=== PATIENT | female | born 1985 | race Caucasian/White ===

== ENCOUNTER 2016-05-20 12:12 | Inpatient (IN) | payer OTHER ==
[~2016-05-20] VITALS: Ht 165.1 cm; Wt 72.8 kg
--- NOTE | ~2016-05-20 | CLPRLASSUM ---
"PATIENT: JOHNATHON BURNS | | [facility] UNIT #: [id number] | [address] AGE/SEX: 30 F : 89 | [address] | [place] [address] ADMIT/REG DATE: 05/20/16 | ROOM: [facility] LOC: ADTC | ADTC | Client Problem List/Assessment Summary Date: 05/09/16 Problems identified by the client: addiction, low self-esteem, legal problems and family problems Problems identified by significant others: addiction, parenting and suicidal thoughts Client's Strengths: caring, open-minded and insightful Problem List: Code: O Client continues to use alcohol &/or drugs despite ongoing negative consequences. Code: T Client has learned to deny or stuff feelings; needs to learn to identify and process feelings with safe people to acquire the necessary skills to maintain manager intermediate sobriety. Code: T Client needs to identify relapse warning signs and develop a plan to deal with them as they arise. Code: O Client is experiencing family &/or significant other discord and distancing as a result of past alcohol &/or drug usage. Code Sheriff: T: to be addressed during course of treatment O: problem noted, expected to resolve itself with abstinence--specific tx plan not required R: problem noted, will be referred upon discharge PRIMARY COUNSELOR: Hue Alvarez"
--- NOTE | ~2016-05-20 | INDIVTXPL2 ---
"PATIENT: JOHNATHON BURNS | | [facility] UNIT #: [id number] | [address] AGE/SEX: 30 F : 89 | [address] | [place] [address] ADMIT/REG DATE: 05/20/16 | ROOM: [facility] LOC: ADTC | ADTC | Individualized Treatment Plan DATE: 05/27/16 Problem Statement/Issue Identified: Client continued to use alcohol &/or drugs despite ongoing negative consequences. Goal: Client will identify self-defeating behaviors in order to make better choices in recovery. Objectives/Activities to achieve goal: 1. Complete HOW TO GET STARTED IN TREATMENT and process with counselor and in group as assgined. Due Date: 05/28/16 Complete: Incomplete: 2. Complete step 1 assignment to identify powerlessness and unmanagability and process with counselor. Share in group 15 examples of how betrayed values (pg 10) and 10 specific examples of effects on others (pg. 11) in group. Due Date: 06/05/16 Complete: Incomplete: 3. Read the first 164 pages of ALCOHOLICS ANONYMOUS and process with counselor. 0 Due Date: 06/17/16 Complete: Incomplete: Client Signature Date Counselor Signaure: Date Outcome/Measurement of Progress Towards Goal: Counselor Signature: Date "
--- NOTE | ~2016-05-20 | INDIVTXPL2 ---
"PATIENT: JOHNATHON BURNS | | [facility] UNIT #: [id number] | [address] AGE/SEX: 30 F : 89 | [address] | [place] [address] ADMIT/REG DATE: 05/20/16 | ROOM: [facility] LOC: ADTC | ADTC | Individualized Treatment Plan DATE: 06/10/16 Problem Statement/Issue Identified: Client is at risk for relapse. Goal: Client will identify relapse triggers and form personal relapse prevention plan. Objectives/Activities to achieve goal: 1. Complete RELAPSE PREVENTION workbook and process with counselor and in group as assigned. Due Date: 06/17/16 Complete: Incomplete: 2. Bring up the topic of relapse at a 12 step meeting and list 10-15 relapse triggers and/or prevention plan. Due Date: 06/17/16 Complete: Incomplete: Client Signature Date Counselor Signaure: Date Outcome/Measurement of Progress Towards Goal: Counselor Signature: Date "
--- NOTE | ~2016-05-20 | TXPLANREV ---
"PATIENT: JOHNATHON BURNS | | [facility] UNIT #: [id number] | [address] AGE/SEX: 30 F : 89 | [address] | [place] [address] ADMIT/REG DATE: 05/20/16 | ROOM: [facility] LOC: ADTC | ADTC | Treatment Plan/Staffing Review Date: 06/10/16 Treatment plan was reviewed and determined appropriate as written: yes, client is working on feelings letters Treatment plan was reviewed and the following changes/addition/deletions are necessary: will add relapse prevention Discharge plans were reviewed and determined appropriate as previously documented: Client has been referred to 12 step meetings and sponsorship. Client plans to return to [place] and will seek aftercare there. Client will also put name on the waiting list for [facility]'s. Discharge plans were reviewed and determined to be as follows: Other pertinent issues discussed during this staffing review include: Staff Present: Vy Olmos, Flora Lancaster, Sukhdeep Go, Paloma Quinn PRIMARY COUNSELOR: Hue Alvarez Client Signature Counselor Signature Date Time "
--- NOTE | ~2016-05-20 | INDIVTXPL2 ---
"PATIENT: JOHNATHON BURNS | | [facility] UNIT #: [id number] | [address] AGE/SEX: 30 F : 89 | [address] | [place] [address] ADMIT/REG DATE: 05/20/16 | ROOM: [facility] LOC: ADTC | ADTC | Individualized Treatment Plan DATE: 05/27/16 Problem Statement/Issue Identified: Client has learned to deny or stuff feelings which may lead to relapse. Goal: Client needs to learn to identify and process feelings with safe people to acquire the necessary skills to maintain superintendent container terminal sobriety. Objectives/Activities to achieve goal: 1. Complete significant event forms on a daily basis and process with counselor as needed. Due Date: 06/18/16 Complete: Incomplete: 2. Write feelings letters as assigned and process with counselor and in family group as assigned. Due Date: 06/16/16 Complete: Incomplete: 3. Complete WOMENS FEELINGS ISSUES JOURNAL and process with counselor and in womens group. Due Date: 06/12/16 Complete: Incomplete: Client Signature Date Counselor Signaure: Date Outcome/Measurement of Progress Towards Goal: Counselor Signature: Date "
--- NOTE | ~2016-05-20 | TXPLANREV ---
"PATIENT: JOHNATHON BURNS | | [facility] UNIT #: [id number] | [address] AGE/SEX: 30 F : 89 | [address] | [place] [address] ADMIT/REG DATE: 05/20/16 | ROOM: [facility] LOC: ADTC | ADTC | Treatment Plan/Staffing Review Date: 06/03/16 Treatment plan was reviewed and determined appropriate as written: yes, client is working on step 1 and feelings letters Treatment plan was reviewed and the following changes/addition/deletions are necessary: will add relapse prevention in the next week Discharge plans were reviewed and determined appropriate as previously documented: Discharge plans were reviewed and determined to be as follows: Client will be referred to 12 step meetings and sponsorship. Client would also benefit from sober living and continued counseling with an Reza Other pertinent issues discussed during this staffing review include: [facility] legal billing analyst in making arrangements for client to visit with her daughter on Thursday. Staff Present: Sukhdeep Lock, Flora Lancaster, Paloma Quinn, Deborah Gramajo PRIMARY COUNSELOR: BEVERLY Dickinson, [facility] Client Signature Counselor Signature Date Time "
--- NOTE | ~2016-05-20 | RESCARESUM ---
"PATIENT: JOHNATHON BUNRS | | [facility] UNIT #: [id number] | [address] AGE/SEX: 30 F : 89 | [address] | [place] [address] ADMIT/REG DATE: 05/20/16 | ROOM: [facility] LOC: ADTC | ADT | Summary of Residential Care Primary Counselor: Hue PAUL,[facility] Date of Admission: 05/20/16 Date of Discharge: 06/17/16 Referral Source: self/[facility] Primary Care Provider Prior to Admission: no doctor listed Admitting Diagnosis: 304.40 stimulant use disorder severe, 303.90 alcohol use disorder severe, 304.30 cannabis use disorder severe, 305.10 tobacco use disorder. Per history: major depressive disorder-recurrent moderate, postraumatic stress disorder Discharge Diagnosis: same Goals Achieved: Client verbalized increased awareness into the severity of her addiction. She practiced identifying and expressing feelings appropriately with safe people. Client identified relapse triggers and formed personal relapse prevention plan. Continued Obstacles to Sobriety/Relapse Issues: anger-not dealing with feelings appropriately, boredom, self-pity, isolation and/or not asking for help. Family Issues Addressed: Client participated in family work alone. She processed feelings letters in session and group as assigned. Client had phone session with her sister and processed feelings letter at that time. Client would likely benefit from additional family sessions when she returns to [place]. Y Individual Therapy Y Group Therapy Y Educational Series on Substance Abuse N Parents/Significant Others Attended Family Program N Acute Medical Problems During the Course of Treatment N Transferred to Hospital During the Course of Treatment Y Accepting of Substance Abuse Problem N Non-accepting of Substance Abuse Problem N Required Psychological or Psychiatric Consultation During the Course of Treatment Completed AA Step # 1 During This Level of Care Significant Incidences During Treatment: Client served in client administrator position to assist her in developing leadership qualities and working on assertiveness. Reason For Discharge: X Completed Residential [place] Goals and Ready For Next Level of Care Continuing Care Plan/Recommendations: Intensive Partial Care X Sponsor Partial Care PATIENT: JOHNATHON BURNS | | [facility] UNIT #: [id number] | [address] AGE/SEX: 30 F : 89 | [address] | [place] [address] ADMIT/REG DATE: 05/20/16 | ROOM: [facility] LOC: ADTC | ADT | Summary of Residential Care X AA Meetings/NA Meetings Outpatient Co-dependency Services X The[facility] [address] [facility] [address] [facility] Marriage Counseling Other Specific Continuing Care Plan: Client is recommended to reside in sober living with counseling. Client is returning to [place] to be near family and her children. She has been referred to [facility] and will seek interium outpatient treatment until admission there. Client has been referred to 12 step meetings and sponsorship. PRIMARY COUNSELOR: Hue Alvarez, BEVERLY, LADC"
--- NOTE | 2016-05-20 22:51 | NUR ---
Tech note : Client participated in rec, playing charMeterHero. Client participated in guided meditation and attended an onsite AA meeting. she was checked into her room and gave her first intro to the group. SE: coming back to treatment.
--- NOTE | 2016-05-21 00:18 | NUR ---
EDUCATION 1HR: Clt watched video by Hiram Freeman entitled my attitude.
--- NOTE | 2016-05-21 04:32 | NUR ---
Bed note : Client was asleep and in no distress at the last two bed checks. She was awake the first bed check, trying to gain access to the bathroom. Her neighbors had forgotten to unlock the door.
--- NOTE | 2016-05-21 11:39 | NUR ---
Clients istened as their peers shared their getting started packet and feeling letters. CLient sat quietly while peers shared. Student: Andre Taylor
--- NOTE | 2016-05-21 12:56 | NUR ---
INITIAL SESSION 1 HR: Clt was oriented to tx process, tx plans, schedules and what to expect from counselor and tx. She had been here previously and left due to needing to take care of mental health. She will be seen by Hue Alvarez, who is currently out ill, so was seen by this counselor and student Andre Taylor. She shared she has 2 children, living with her sister, is on meds to deal with PTSD, but heard she will work on that in session. She is to work on initial paperwork.
--- NOTE | 2016-05-21 13:46 | NUR ---
Education note: client attended education speaker from the [facility].
--- NOTE | 2016-05-21 13:54 | NUR ---
Tech notes: Client is working on Getting started
--- NOTE | 2016-05-21 17:36 | NUR ---
SPIRITUAL EDUCATION 1 Hr. Today's topic besides welcoming and orienting newcomers was on the miracle of the human body taken from [employer].
--- NOTE | 2016-05-21 18:25 | NUR ---
Education: 1 Hour. Client attended Step 2 @ 3 lecture presented by staff.
--- NOTE | 2016-05-21 22:57 | NUR ---
tech note: client played [employer] for recreation & attended onsite NA meeting. Seen walking the halls with a male peer. Redirected by [employer] for inappropriate language. SE: Spirituality.
--- NOTE | 2016-05-22 04:54 | NUR ---
Bed Note: Clt lay motionless in bed with eyes closed showing no distress at all bed checks.
--- NOTE | 2016-05-22 10:22 | NUR ---
Tech Note: Client Participated in Spiritual Enrichment and stated that he is working on Step One.
--- NOTE | 2016-05-22 11:30 | NUR ---
AM/WOMEN'S GRP 1.5 HRS, Ratio 1:6/ Clt participated in grp discussion on various topics. She didn't engage much, but when she did it was good feedback.
--- NOTE | 2016-05-22 13:38 | NUR ---
Education Note: Client watched the video,"Inhalant Abuse, Signs and Symptoms."
--- NOTE | 2016-05-22 16:25 | NUR ---
Step group 1 hr/ Focus was on step 10 taking personal inventory. Gave clients some questions to answer on paper and then discussed out loud to educate on step 10. This client participated.
--- NOTE | 2016-05-22 18:30 | NUR ---
Education: 1 Hour. Client watched "Picking up the Pieces" video.
--- NOTE | 2016-05-22 18:30 | NUR ---
Education: 1 Hour. Client watched "Picking up the Pieces" video.
--- NOTE | 2016-05-22 22:56 | NUR ---
Tech note: Clt played a game for recreation and attended onsite mtg. SE was 30 day chip at [facility]
--- NOTE | 2016-05-23 04:11 | NUR ---
tech note: client was motionless in no distress at all bed checks.
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
--- NOTE | 2016-05-23 11:30 | NUR ---
Group 1.5hr/ 11:1 Clients all heard peer share GS packet about her life and group also discussed how [employer] has helped them. Client gave some feedback but mostly quiet and attentive.
--- NOTE | 2016-05-23 13:00 | NUR ---
PEER REVIEWS 1 HR: Clt participated in peer review process and was able to give open and honest feedback to those receiving a review.
--- NOTE | 2016-05-23 16:13 | NUR ---
Tech Note: Client watched a film entitled "Nightmare on [address]" and is working on Step 1.
--- NOTE | 2016-05-23 22:57 | NUR ---
TECH NOTE: Client participated in reading guidelines, watched tv/movies, and attended off site AA meeting. SE: finished step 1
--- NOTE | 2016-05-24 04:21 | NUR ---
BED NOTE: Client was in bed, motionless with eyes closed all bed checks
--- NOTE | 2016-05-24 16:23 | NUR ---
Tech Note: Client went to an off-site AA Meeting. Client stated that she is working on reading the Big Book.
--- NOTE | 2016-05-24 21:07 | NUR ---
Tech note: Client watched basketball or worked on [employer] projects for rec, attended offsite AA meeting. Watched Tv and movies SE:janiya
--- NOTE | 2016-05-25 04:26 | NUR ---
BED NOTE: Client was in bed, motionless with eyes closed all three bed checks.
--- NOTE | 2016-05-25 16:48 | NUR ---
Tech Note: Client participated in Big Book Study, chapter two. Client stated that she is working on reading the Big Book.
--- NOTE | 2016-05-25 23:09 | NUR ---
Tech Note : Client attended AA panel/speaker. Client went to an onsite [employer] meeting. SE: Talking at meeting
--- NOTE | 2016-05-26 05:02 | NUR ---
Bed note : Client was asleep and in no distress at all bed checks.
--- NOTE | 2016-05-26 09:56 | NUR ---
Tech notes: Client is working on BB
--- NOTE | 2016-05-26 11:30 | NUR ---
Experiential Group 1.5 hr/ Clients all participated in family sculpturing by role-playing, feedback or relating. All discussed coming from healthy and unhealthy home environments.
--- NOTE | 2016-05-26 13:27 | NUR ---
Education note: Client watched a video "It can't happen to me".
--- NOTE | 2016-05-26 16:00 | NUR ---
RECOVERY 101 1 HR/ Clients all shared and asked questions in discussions on recovery, what to work on in treatment, how to get a sponsor, opening up while here to get everything out, feelings letters, family program and EMDR therapy.
--- NOTE | 2016-05-26 18:09 | NUR ---
Education Note: 1 hour lecture on feelings given by counselor
--- NOTE | 2016-05-26 22:36 | NUR ---
TECH NOTE: Client played [employer]xim[employer] in REC and attended on site NA meeting. SE: celebrating her 30 days
--- NOTE | 2016-05-27 04:25 | NUR ---
Bed note: Client was in bed with eyes closed and no distress at all bed checks.
--- NOTE | 2016-05-27 11:30 | NUR ---
GROUP 1.5 HRS. 1:9 Group discussion included FEELINGS, FAMILY RELATIONSHIPS and effects on family. Client offered supportive feedback to female peer who shared about separation from . Peer encouraged this client to share and open up as she tends to isolate on the unit. Client agreed that she has trouble with groups but female peer advised she is doing better since she got here.
--- NOTE | 2016-05-27 14:49 | NUR ---
Education 0.5 Hour: Client attended a presentation by an outwside speaker who spoke on, "Cross Addiction."
--- NOTE | 2016-05-27 14:58 | NUR ---
Tech Note: Client particiipated in light stretching for morning exercise period and went for an outdoor walk in the afternoon. Client stated that she is working on reading the Big Book.
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
--- NOTE | 2016-05-27 17:57 | NUR ---
Relapse Prevention: 1.0 hours, 05/13, Client attended and actively participated in relapse prevention education which focused on identifying internal relapse triggers and cues.
--- NOTE | 2016-05-27 23:05 | NUR ---
Tech note: Client participated in beaded project for rec and attended an onsite AA meeting. SE; Meeting with counselor
--- NOTE | 2016-05-28 04:00 | NUR ---
Bed Note; Client was asleep and in no distress at all bed checks.
--- NOTE | 2016-05-28 09:55 | NUR ---
Tech notes: Client is working on Fl's and mtg with chavez.
--- NOTE | 2016-05-28 11:30 | NUR ---
GROUP 1.5 HRS. 1:11 Group discussion included family issues and HOW TO GET STARTED IN TREATMENT assignments. Peer shared his first and client was noted to be anxious and stated she didn't want to share in this big of a group but she did willingly share as assigned. It was noted that client stopped shaking her leg immediately when she started to share. She agreed that anticipation was the worst part.
--- NOTE | 2016-05-28 12:44 | NUR ---
Education note: Client attended education by [facility].
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
--- NOTE | 2016-05-28 17:47 | NUR ---
SPIRITUaL EDUCATION 1 HR. Todays topic after orienting newcomers was GRATITUDE with information taken from ATTITUDES OF GRATITUDE.
--- NOTE | 2016-05-28 17:47 | NUR ---
Client's commonwealth attorney, Carrillo Bustamante, returned call to client and requested she call back tomorrow.
--- NOTE | 2016-05-28 19:19 | NUR ---
Education: 1 Hour. Client attended "Unresloved Anger" lecture and discussion presented by staff.
--- NOTE | 2016-05-28 23:07 | NUR ---
Tech note; Client played catch phrase for rec and attended an onsite NA meeting. SE; rec
--- NOTE | 2016-05-29 04:32 | NUR ---
Bed Note: Client was asleep and in no distress at all bed checks.
--- NOTE | 2016-05-29 10:43 | NUR ---
Tech Note: Client participated in light stretching for morning exercise and stated that she is working on writing Feelings Letters.
--- NOTE | 2016-05-29 11:50 | NUR ---
Group 1.5 Hr Ratio 1:11/Topics today were a feelings letter and a GS packet. Client was quiet all of group and didnot share.
--- NOTE | 2016-05-29 17:01 | NUR ---
Step ed/1 hr/ Handed out a worksheet on step 11 on prayer and meditation and had them complete and then we discussed. This client participated.
--- NOTE | 2016-05-29 17:48 | NUR ---
Education 1 Hour: Client heard a presentation from a member of the recovery community who shared his experience, strength and hope.
--- NOTE | 2016-05-29 23:39 | NUR ---
TECH NOTE: Client played Catch Phrase for REC, participated in Guided Meditation and attended on site AA meeting. SE: REC
--- NOTE | 2016-05-30 02:19 | NUR ---
Education 1HR: Clt watched educational video entitled "Don't Meth With Me".
--- NOTE | 2016-05-30 04:52 | NUR ---
BED NOTE: Client was in bed, eyes closed and motionless all three bed checks
--- NOTE | 2016-05-30 11:30 | NUR ---
Group 1.5hr/ 11:1 Clients heard peer share GS packet, gave feedback and got into deep discussions about recovery.
--- NOTE | 2016-05-30 13:47 | NUR ---
PEER REVIEWS 1 HR: CLt participated in peer reviews and was able to give open and honest feedback to those receiving a review.
--- NOTE | 2016-05-30 15:39 | NUR ---
Tech Note: Client watched a video entitled "The Enablers" and is working on Feelings Letters and a "women's journal".
--- NOTE | 2016-05-30 20:45 | NUR ---
TECH NOTE: Client participated in reading guidelines, watched TV/movies, used phone and attended off site AA meeting SE:
--- NOTE | 2016-05-31 04:46 | NUR ---
BED NOTE: Client was in bed, motionless with eyes closed all bed checks.
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
--- NOTE | 2016-05-31 15:37 | NUR ---
Tech notes: Client attended NA panel this morning and working on Fl's.
--- NOTE | 2016-05-31 18:38 | NUR ---
tech note: client attended offsite recovery event.
--- NOTE | 2016-06-01 04:38 | NUR ---
Bed Note: Clt lay motionless in bed with eyes closed showing no distress at all bed checks.
--- NOTE | 2016-06-01 15:10 | NUR ---
Tech Note: Client participated in big book study and is working on FL's.
--- NOTE | 2016-06-01 23:19 | NUR ---
Tech note: Client asked to go to [facility]. was upset after phone calls. Attended CONTINUOUS IMPROVEMENT SPECIALIST meeting. Watched TV SE: [employer]
--- NOTE | 2016-06-02 04:34 | NUR ---
BED NOTE: Client was in bed, motionless, with eyes closed all bed checks.
--- NOTE | 2016-06-02 10:20 | NUR ---
Tech notes: Client is working on Fl's.
--- NOTE | 2016-06-02 11:30 | NUR ---
Group 1.5hr/ 2:22 Clients all participated in THE WALL reading, drawing and sharing about their goel with the group showing character defects and relapse triggers, plus what has helped them go gain hope and support in taking down their wall.
--- NOTE | 2016-06-02 12:52 | NUR ---
Education note: Client attended education by [facility], HIV testing.
--- NOTE | 2016-06-02 15:26 | NUR ---
FAMILY CONTACT Client's sister called and advised she is not going to be able to come to for family. Scheduled phone session for 06/05 AT 8:30 AM. Sister provided information regarding client's kids to be relayed to client.
--- NOTE | 2016-06-02 16:56 | NUR ---
Recovery 101 1 hr/ Clients involved in identifying and discussion about fundamentals of recovery. Did discuss types of meetings, how to get and use sponsors, working steps, reading JORGE literature, using slogans/serenity prayer/tools, not to start new relationship first year, encourage family to go to [facility] and open AA/NA, finding a HP/home group, HOW/sayings/slogans, etc.
--- NOTE | 2016-06-02 18:20 | NUR ---
Education: 1 Hour. Client attended "Forgiveness" lecture given by staff.
--- NOTE | 2016-06-02 22:53 | NUR ---
tech note: client played Catch Phrase for recreation & attended onsite NA mtg. Thanked peers for all their support. SE: NA.
--- NOTE | 2016-06-03 05:14 | NUR ---
Tech Note: Clt lay motionless in bed with eyes closed showing no distress at all bed checks.
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
--- NOTE | 2016-06-03 13:51 | NUR ---
Education 1 Hour: Client attended a presentation on "Tobacco Educaton."
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
--- NOTE | 2016-06-03 15:20 | NUR ---
Tech Note: Client participated in light stretching for morning exercise and walked in the halls in the afternoon. Client stated that she is working on wriiting HOTELbeats Letters.
--- NOTE | 2016-06-03 15:57 | NUR ---
Relapse Prevention, 1.0, Client attended and actively participated in relapse prevention education which focused on the relapse quiz "What Do You Know About Relaps?"
--- NOTE | 2016-06-03 22:46 | NUR ---
Education note: 1 hour, lecture given by counselor on what painting are you willing to pay.
--- NOTE | 2016-06-03 23:10 | NUR ---
Tech note: Instead of rec clients went to an alumni meeting and attended an onsite AA meeting. SE; Found out she gets to visit her daughter
--- NOTE | 2016-06-04 04:21 | NUR ---
Bed Note: Client was in bed with eyes closed and in no distress at all bed checks.
--- NOTE | 2016-06-04 10:24 | NUR ---
Tech Notes: Client is working on Fl's.
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
--- NOTE | 2016-06-04 13:33 | NUR ---
SPIRITUAL EDUCATION 1 HR. Topics today were on getting out of self centered behavior and recovery slogans. Clients made BB bookmarks w slogans and also anonymously wrote welcoming letters for newcomers.
--- NOTE | 2016-06-04 17:54 | NUR ---
ducation Note: Client attended education speaker Alfonzo
--- NOTE | 2016-06-04 20:42 | NUR ---
Education: 1 hour lecture on boundaries given by counselor
--- NOTE | 2016-06-04 22:17 | NUR ---
Tech note : Client participated in rec by playing catch phrase and attended an onsite NA meeting. SE; Group
--- NOTE | 2016-06-05 03:52 | NUR ---
Bed note : Client was motionless and in no distress at all bed checks.
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
--- NOTE | 2016-06-05 10:23 | NUR ---
Tech Note: Client participated in light stretching for morning exercise. Client stated that she is working on, "Relapse Prevention" and writing Feelings Letters.
--- NOTE | 2016-06-05 11:30 | NUR ---
AM GRP 1.5 HRS, Ratio 1:9/ Clt cried as her peers were sharing about suicidal attempts, parents not being in their lives, and stated she can relate to all of them. She has been on her own for many years and has been suicidal. We discussed how recovery can change all that thinking.
--- NOTE | 2016-06-05 13:57 | NUR ---
Education 1 Hour: Client watched the vidoe, "Predator" by Hiram Schumacher.
--- NOTE | 2016-06-05 16:41 | NUR ---
FAMILY EDUCATION 3 HRS. Client attended alone and took part in the discussion on the disease concept. Client shared chemical history and the consequences.
--- NOTE | 2016-06-05 21:00 | NUR ---
Education: 1 Hour. Client attended "Spiritual Awakening" video.
--- NOTE | 2016-06-05 23:05 | NUR ---
Tech Note: Client played a game for recreation and attended onsite A.A. Meeting. SE: Phone
--- NOTE | 2016-06-06 04:12 | NUR ---
Tech Note: Client was motionless with no distress at all bed checks.
--- NOTE | 2016-06-06 14:13 | NUR ---
PEER REVIEWS 1 HR: Jeremy participated in peer review process and received her own. She heard she is ashamed, needs to forgive herself, insecure, has quilt, hides in the corner, holding on to the past, can go from happy to sad in a minute, thinks she lacks value, has regret, remorse, a wall, sadness, hurt, shame and depression, she worries about what others think of her and is afraid of the future. Jeremy stated she felt all of the feelings when hearing these things.
--- NOTE | 2016-06-06 15:50 | NUR ---
Tech Note: Client joined in outdoor group walk, watched "Marijuana" video (by Hiram Schumacher) and is working on Feelings Letters and Relapse Prevention.
--- NOTE | 2016-06-06 16:37 | NUR ---
Morning Group, 05/05, 1.5 hours, Client attended and actively participated in group. Client shared her Step 1 and how she is having a hard time forgiving herself for past mistakes.
--- NOTE | 2016-06-06 23:21 | NUR ---
TECH NOTE: Client participated in reading guidelines, watched tv/movies and attended optional AA meeting. SE: peer review
--- NOTE | 2016-06-07 04:22 | NUR ---
Bed Note: Clt lay motionless in bed with eyes closed showing no distress at all bed checks.
--- NOTE | 2016-06-07 16:08 | NUR ---
Tech Note: Client attended an off-site AA meeting. Client stated that she is working on, "Relapse Prevention" and writing Feelings Letters.
--- NOTE | 2016-06-07 20:06 | NUR ---
TECH NOTE: Client played Charades in REC, attended off site AA meeting and watched tv/movies SE: janiya
--- NOTE | 2016-06-08 04:42 | NUR ---
Bed Note: Clt lay motionless in bed with eyes closed showing no distress at all bed checks.
--- NOTE | 2016-06-08 14:45 | NUR ---
Tech Note: Client stated that she is working on writing Feelings Letters. Client attended catholic and went for an optional outdoor walk.
--- NOTE | 2016-06-08 23:17 | NUR ---
Tech Note: Client attended A.A.Panel. Client used phone and watched a movie. Client also chaired the [facility] meeting salima. SE: Visit with family
--- NOTE | 2016-06-09 04:31 | NUR ---
Bed Note: Clt lay motionless in bed with eyes closed showing no distress at all bed checks.
--- NOTE | 2016-06-09 09:48 | NUR ---
Tech Notes: Client is working on Relapse Prevention.
--- NOTE | 2016-06-09 11:30 | NUR ---
Group 1.5 hr/ 8:1 Clients heard peers share GS packet and letters, this client was involved in relating and feedback.
--- NOTE | 2016-06-09 13:48 | NUR ---
emerald note: Client attended speaker Chintan Go
--- NOTE | 2016-06-09 21:00 | NUR ---
FAMILY EDUCATION 3 HRS., GROUP 2 HRS. 2:6 Client attended alone and took part in the discussion on the family roles, codependency and detachment. Client tearful as peers and families processed feelings letters. She advised after group that she was angry that she had to attend alone.
--- NOTE | 2016-06-09 22:45 | NUR ---
Client attended Family. SE: Waking up this morning
--- NOTE | 2016-06-09 23:03 | NUR ---
Education Note: One hour lecture on adult children of alcoholics given by counselor.
--- NOTE | 2016-06-10 04:07 | NUR ---
Bed Note: Client was in bed with eyes closed and motionless at all bed checks.
--- NOTE | 2016-06-10 11:30 | NUR ---
Morning Group, 05/05. 1.5 hours, Client attended and actively participated in group discussion. Client listened to her peers share.
--- NOTE | 2016-06-10 14:46 | NUR ---
Tech Note: Client participated in group walk for exercise, watched the first half of [employer] for education and is working on Feelings Letters.
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
--- NOTE | 2016-06-10 16:00 | NUR ---
Relapse Prevention, 05/12, 1.0 hours, Client attended and actively participated in relapse education which focused on compulsive behaviors and relapse.
--- NOTE | 2016-06-10 16:41 | NUR ---
Education Note: Client participated in Relapse Prevention education.
--- NOTE | 2016-06-10 18:21 | NUR ---
Education: 1 HOUR. Client attended "Codependency" lecture given by staff.
--- NOTE | 2016-06-10 22:26 | NUR ---
TECH NOTE: Client played Catch Phrase for REC, participated in Guided Meditation, and attended AA meeting. SE: meeting with counselor
--- NOTE | 2016-06-11 04:33 | NUR ---
tech note: client was motionless in no distress @ first two bed checks,client looked at tech at last bed check.
--- NOTE | 2016-06-11 11:16 | NUR ---
Tech notes: Client is working on Relapse Prevention.
--- NOTE | 2016-06-11 12:55 | NUR ---
Group 1.5hrs 1:9 Student: Andre Taylor Client shared feelings letters and received feedback from peers. Client was upset about the amount of time left in group for her to share. Client expressed feelings of worthlessness but stated she was abiding by her contract.
--- NOTE | 2016-06-11 13:16 | NUR ---
Morning Group, 05/05. 1.5 hours, Client attended and actively participated in group discussion. Client listened to her peers share.
--- NOTE | 2016-06-11 13:19 | NUR ---
Education note: Client attended speaker Eric for education.
--- NOTE | 2016-06-11 15:00 | NUR ---
IS/CRISIS .25 HRS. Client came to counselor's office in tears. She shared about test results and requested permission to make calls about such. She shared feeling embarassed and ashamed about her behavior as well as peers observing her talking to the nurse. Client is encouraged to look at the positive changes she is making and being responsible now.
--- NOTE | 2016-06-11 16:08 | NUR ---
SPIRITUAL EDUCATION 1 HR. We oriented newcomers to spirituality group, and todays activities were putting on presentations from parts of TOWARDS SPIRITUALITY book.
--- NOTE | 2016-06-11 23:05 | NUR ---
tech note: Client played Pictionary for recreation & attended onsite NA meeting. SE: NA meeting.
--- NOTE | 2016-06-11 23:29 | NUR ---
Eduction: 1 Hour. Client attended "Disease Concept" lecture.
--- NOTE | 2016-06-12 05:38 | NUR ---
tech note: Client was motionless in no distress at all bed checks.
--- NOTE | 2016-06-12 10:20 | NUR ---
Sherin Note: Client stated that she is working on reading the Big Book and writing Feelings Letters.
--- NOTE | 2016-06-12 11:59 | NUR ---
Group 1.5 Hr Ratio 1:11/Topics today were orientating two new members to group rules and goals. A feelings letter and dealing with anger. Client shared how she did not deal with anger in a positive manner and would make the situation worse. Client is working on walking away to calm down and then go back to discuss the issue.
--- NOTE | 2016-06-12 15:34 | NUR ---
Education 1 Hour: Client heard a panel of speakers from the local recovery community, who shared their experience, strength and hope.
--- NOTE | 2016-06-12 15:56 | NUR ---
Step education/1 hr/ Focus was on step one. Each person completed a worksheet on this topic and then chose 4 from sheet to share out loud. This person participated.
--- NOTE | 2016-06-12 23:22 | NUR ---
TECH NOTE: Client redecorated the building for [employer] [employer], participated in Guided Meditation and attended on-site AA meeting. SE: MARY
--- NOTE | 2016-06-13 04:36 | NUR ---
Bed Note: Clt lay motionless in bed with eyes closed showing no distress at all bed checks.
--- NOTE | 2016-06-13 11:00 | NUR ---
IS 1 HR. Client processed completed feelings letters to her other brother, mom, 2 kids and daughter's dad. Discussed resentments and pg. 552 of big book in regards to daughter's dad. Client plans to share letters with both her brother and her mom when she returns to [place]. Client confirms that she resided in [place] until 2015. Referral is pending at [facility]. Client is completed with RELAPSE PREVENTION WORKBOOK and is assigned to share letter in group and will process next session. Client was given additional assignments of SELF WORTH and step 2 & 3 outline. She reports much improvement in how she is feeling and forgiving self and minimal to no recent suicidal thoughts.
--- NOTE | 2016-06-13 13:00 | NUR ---
PEER REVIEWS, 1 HR: Clt participated in peer review process and was able to give open and honest feedback to those receiving a review.
--- NOTE | 2016-06-13 15:48 | NUR ---
Tech Note: Client watched the second half of [employer] for education and is working on the Big Book.
--- NOTE | 2016-06-13 20:27 | NUR ---
Tech note: client watched tv and movies, attended optional offsite AA mtg SE:mtg with counselsor
--- NOTE | 2016-06-14 04:32 | NUR ---
Bed note: client was in bed with eyes closed and no distess at all bed checks
--- NOTE | 2016-06-14 16:26 | NUR ---
Tech Note: Client attended N.A.Panel and is working on Self worth
--- NOTE | 2016-06-14 20:09 | NUR ---
tech note: Client did service work at offsite location where clients attended the AA meeting. Client talked on the phone-tech noticed she was upset and cussing during the call. SE: Caroline.
--- NOTE | 2016-06-15 04:59 | NUR ---
Bed Note : Client had eyes closed and in no distress at all bed checks.
--- NOTE | 2016-06-15 16:19 | NUR ---
Tech Note: Client is working on self worth, went for optional walk and visitors
--- NOTE | 2016-06-15 17:23 | NUR ---
Tech note: Clients family slipped a 12 pack of taco's and drinks pass the tech station and were eating on the patio. When redirected by tech was told they didn't know the rules.
--- NOTE | 2016-06-15 23:33 | NUR ---
TECH NOTE: Client attended AA panel, participated in community clean and watched tv/movies. SE: visitors
--- NOTE | 2016-06-16 04:14 | NUR ---
BED NOTE: Client was in bed, motionless with eyes closed all three bed checks.
--- NOTE | 2016-06-16 10:39 | NUR ---
Tech notes: Client is working on BB
--- NOTE | 2016-06-16 12:39 | NUR ---
Experiential Group 1.5 hr/ Clients all participated in family sculpturing by role-playing, feedback, and relating. They also shared what they needed to get help with and a gratitude. She is grateful to recovery/these rooms and wants help to ask for help so was challenged with assignment to ask for help for 24 hours.
--- NOTE | 2016-06-16 13:31 | NUR ---
Education note: Client watched video "It can't happen to me"
--- NOTE | 2016-06-16 16:00 | NUR ---
RECOVERY 101 1 HR/ Clients learned about Fundamentals of recovery and tools from AA/NA. They participated by sharing what they hear at meetings that are important for their recovery like: working the steps, how to get and use sponsors, reading C.A.L. literature, service work, HP concept, opening up, slogans, using the Serenity Prayer, attending functions, what is closed and open meetings, etc.
--- NOTE | 2016-06-16 19:07 | NUR ---
Education 1HR: Clt attended lecture given by counselor on "Communication".
--- NOTE | 2016-06-16 22:27 | NUR ---
Tech note: Client participated in group by playing catch phrase. Client attended an onsite NA meeting. SE: 60 days
--- NOTE | 2016-06-17 05:07 | NUR ---
Bed note : Client was motionless with eyes closed at all bed checks.
--- NOTE | 2016-06-17 09:15 | NUR ---
IS 1 HR. Client processed relapse assignments. She reviewed progress on treatment plans and has completed all objectives. Discussed discharge plans and client was provided contact information for [facility]. Client shared about visit with family over the weekend and is glad to have support not only from her sister but also mom and brother. Client shared the positive things she has experienced since being in treatment and improvements she feels. Client reports she feels better about going back to [place] although she initially identified [place] as relapse trigger. Client was provided meeting list for [facility]. She completed a continued care plan, was given a token and did survey.
--- NOTE | 2016-06-17 10:26 | NUR ---
Discharge Note: Client left with all personal property and the medications that she came in with. Her family was here to pick her up.
--- NOTE | 2016-08-10 15:25 | DS ---
ADMIT: 05/20/2016 RM/LOC: [id number] [facility] MR#: [id number] [facility] [address] [place] [id number] JOHNATHON BURNS [address] [facility] [place] [address] General Discharge Summary SEX: F AGE: 30 : 1985 ADMISSION DATE: 05/20/2016 DISCHARGE DATE: 06/17/2016 INDICATION FOR HOSPITALIZATION: Johnathon is a 31-year-old, single, white female, admitted to residential level treatment at [facility] on 05/20/2016. She had had a recent admission on May 05 and at [facility]. Her drug of choice on admission was methamphetamines. Second drug of choice is alcohol. Third drug of choice is cannabis. Please see her admission H and P for further details regarding her history of present illness, past medical history, physical exam, and assessment at time of hospitalization. HOSPITAL COURSE: On admission, Johnathon was admitted to our residential level treatment [facility]. During treatment, she was evaluated by public health and positive GC probe that was treated with Rocephin 250 mg in the a.m. She was placed on multivitamin and thiamine during the residential level treatment program. Her primary care counselor assigned was BEVERLY Dickinson, [facility]. During treatment, she underwent individual and group therapy sessions on her drug and alcohol abuse dependency. She completed an educational series on substance abuse. Her sister was involved during the family portion of the treatment program via phone. She was overall accepting of her substance abuse problems. Relapse triggers were identified and relapse prevention plan was outlined. Spirituality issues were addressed. She completed step 1 of Alcoholics Anonymous. 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 Reason for discharge was completion of residential level treatment goals. Aftercare recommendations include going to a therapeutic community with [facility] with active AA and NA meeting involvement with outpatient counseling and a sponsor. LABORATORY AND X-RAY DATA: During hospitalization none. ADMIT: 05/20/2016 RM/LOC: [id number] [facility] MR#: [id number] [address] [id number] JOHNATHON BURNS [address] [place] [address] General Discharge Summary SEX: F AGE: 30 : 1985 DISCHARGE MEDICATIONS: None. FINAL DISCHARGE DIAGNOSES: Include: 1. Stimulant use disorder, severe. 2. Alcohol use disorder, moderate to severe. 3. Cannabis use disorder, severe. 4. Tobacco dependency. 5. Neisseria gonorrhoea. PROCEDURES: Include drug and alcohol abuse dependency treatment and counseling. Please see her hospital record for the details. Andrea Montes MD/ memo JOB #: [id number] CC: Andrea Montes MD, Attending Physician FAMILY PHYSICIAN, Family Physician
== END 2016-06-17 10:28 | disposition home or self-care (01) | DRG 895 ==
LOC: ADTC 12:12
PROVIDERS: ADMIT Family Medicine
DX: F15.20 Other stimulant dependence, uncomplicated (principal); F32.9 Major depressive disorder, single episode, unspecified; F10.20 Alcohol dependence, uncomplicated; F12.20 Cannabis dependence, uncomplicated; F17.210 Nicotine dependence, cigarettes, uncomplicated; F43.10 Post-traumatic stress disorder, unspecified; Z56.0 Unemployment, unspecified; Z59.0 Homelessness; Z63.72 Alcoholism and drug addiction in family